=== PATIENT | female | born 1960 | race Caucasian/White ===

== ENCOUNTER 2020-11-11 22:18 | Emergency (ER) | payer OTHER ==
[~2020-11-11] VITALS: Ht 170.2 cm; Wt 82.6 kg
[2020-11-11 22:41] LABS: BILIRUBIN,URINE Negative (NEGATIVE); COLOR,URINE YELLOW (YELLOW); LEUKOCYTE ESTERASE ,URINE Negative (NEGATIVE); NITRITE, URINE Negative (NEGATIVE); PROTEIN,URINE Negative (NEGATIVE); UGLUCOSE Negative (NEGATIVE); UROBILINOGEN,URINE 0.2 EU/dL (0.2)
[2020-11-11 23:00] LABS: BACTERIA,URINE Rare /HPF (None Seen); SQUAMOUS EPITHELIAL CELL,UR Few /HPF (None Seen); WBC,URINE NONE SEEN /HPF (0-3)
[2020-11-11] MEDS ORDERED: ONDANSETRON HCL/PF 4 MG/2 ML VIAL ONE (23:18)
[2020-11-11] MEDS ORDERED: MORPHINE SULFATE INJ 4 MG/ML DISP.SYRIN ONE (23:18)
[2020-11-11] MEDS: ONDANSETRON HCL/PF 4 MG/2 ML VIAL IVP ONE (23:30)
[2020-11-11] MEDS: IV NS 0.9% 1,000 ML BAG IV ONE (23:30)
[2020-11-11] MEDS: MORPHINE SULFATE INJ 2 MG/ML DISP.SYRIN IV ONE (23:30)
--- NOTE | 2020-11-11 23:33 | NUR ---
PT TAKEN TO CT
--- NOTE | 2020-11-11 23:33 | NUR ---
C/O SUPRAPUBIC PAIN, FREQUENCY URINATION WITH NAUSEA SINCE 1800 TO ER BED 13 ORDERED RECEIVED AND CARRIED OUT
[2020-11-11 23:36] LABS: BASOPHILS % (AUTO) 0.3 % (0.0-2.0); EOSINOPHILS % (AUTO) 0.4 % (0.0-6.0); HEMATOCRIT 40 % (33-45); HEMOGLOBIN 13.4 g/dL (11.5-14.8); LYMPHOCYTES # (AUTO) 1.2 /CMM (0.8-4.8); LYMPHOCYTES % (AUTO) 9.8 % (20.0-44.0); MEAN CORPUSCULAR HGB CONC 34 g/dl (31.0-36.0); MEAN CORPUSCULAR VOLUME 88 fL (82-100); MONOCYTES # (AUTO) 0.9 /CMM (0.1-1.30); MONOCYTES % (AUTO) 7.2 % (2.0-12.0); NEUTROPHILS # (AUTO) 10.2 /CMM (1.8-8.9); NEUTROPHILS % (AUTO) 82.3 % (43.0-81.0); PLATELET COUNT (AUTO) 215 /CMM (150-450); RED BLOOD CELL COUNT(AUTO) 4.51 MIL/uL (4.0-5.2); WHITE BLOOD COUNT (AUTO) 12.4 K/uL (4.3-11.0)
[2020-11-11 23:49] LABS: ALBUMIN 3.8 g/dL (3.4-5.0); BILIRUBIN,DIRECT 0.1 mg/dL (0.0-0.2); BILIRUBIN,TOTAL 0.3 mg/dL (0.2-1.0); CALCIUM, SERUM 8.6 mg/dL (8.5-10.1); CREATININE 0.9 mg/dL (0.6-1.3); POTASSIUM 3.6 mmol/L (3.5-5.1); TOTAL PROTEIN, SERUM 7.4 g/dL (6.4-8.2)
--- NOTE | 2020-11-12 00:17 | NUR ---
Patient discharged to home in stable condition. Written and verbal after care instructions given. Patient verbalizes understanding of instruction.IV removed. Catheter intact and site benign. Pressure and 4x4 applied to site. No bleeding noted. Pt ambulatory with a steady gait
[2020-11-12 00:18] VITALS: BP 156/74
== END 2020-11-12 00:19 | disposition home or self-care (01) ==
LOC: ER 22:25
DX: K59.00 Constipation, unspecified (principal); D25.9 Leiomyoma of uterus, unspecified; G43.909 Migraine, unspecified, not intractable, without status migrainosus; M79.7 Fibromyalgia; Z91.040 Latex allergy status
CPT/HCPCS: 36415; 74176; 80048; 80076; 81001; 83690; 85025; 96361; 96374; 96375; 99284; J2270; J2405; J7030